=== PATIENT | female | born 1995 | race American Indian/Alaskan Native ===

== ENCOUNTER 2016-09-14 14:22 | Emergency (ER) | payer BC ==
[2016-09-14 14:31] VITALS: O2SAT 98
--- NOTE | 2016-09-14 15:16 | C.PDOC ---
History Of Present Illness 21 yr old female presents to the ER stating for the past 2 weeks she has been experiencing intermittent, non productive cough and nasal congestion. Reports the cough is more sever at night time and is associated with post-tussive emesis. Patient state she has been seen by her PMD who prescribed her Bromfed and had no relief. Patient denies recent travel, fever, chest pain, SOB, abdominal pain, diarrhea or rash. Time Seen by Provider: 09/14/16 14:37 Chief Complaint (Nursing): Cough, Cold, Congestion History Per: Patient History/Exam Limitations: no limitations Onset/Duration Of Symptoms: Intermittent Episodes (2 weeks) Past Medical History Reviewed: Historical Data, Nursing Documentation, Vital Signs Vital Signs: Last Vital Signs Temp 98.2 F 09/14/16 15:23 Pulse 72 09/14/16 15:23 Resp 20 09/14/16 15:23 BP 111/67 09/14/16 15:23 Pulse Ox 98 09/14/16 16:58 Family History: States: No Known Family Hx - Social History Hx Tobacco Use: No Hx Alcohol Use: No Hx Substance Use: No Review Of Systems Except As Marked, All Systems Reviewed And Found Negative. Constitutional: Negative for: Fever ENT: Positive for: Nose Congestion Cardiovascular: Negative for: Chest Pain Respiratory: Positive for: Cough (Non productive ). Negative for: Shortness of Breath Gastrointestinal: Positive for: Vomiting (post-tussive emesis). Negative for: Abdominal Pain, Diarrhea Skin: Negative for: Rash Physical Exam - Physical Exam Appears: Non-toxic, No Acute Distress Skin: Warm, Dry, No Rash Head: Atraumatic, Normacephalic Eye(s): bilateral: Normal Inspection Oral Mucosa: Moist Throat: Normal, No Erythema, No Exudate, No Drooling Neck: Normal, Normal ROM, Supple Chest: Symmetrical, No Tenderness Cardiovascular: Rhythm Regular, No Murmur Respiratory: Normal Breath Sounds, No Rales, No Rhonchi, No Stridor, No Wheezing Gastrointestinal/Abdominal: Normal Exam, Soft, No Tenderness, No Guarding, No Rebound Extremity: Normal ROM, No Swelling Neurological/Psych: Oriented x3, Normal Speech, Normal Motor Gait: Steady ED Course And Treatment O2 Sat by Pulse Oximetry: 98 (RA ) Pulse Ox Interpretation: Normal - Radiology CXR: Viewed By Me, Read By Radiologist CXR Interpretation: Yes: No Acute Disease Medical Decision Making Medical Decision Making: PLAN: * CXR * Claritin PO * Prednisone PO On re-exam, the patient reports improvement of symptoms. Lungs are CTA, heart is RRR, abdomen is soft, non-tender and patient is tolerating PO well. Ambulatory in the ED with steady gait. Follow up with the medical doctor within 1-2 days, Return if worsened. Disposition - Disposition Referrals: [facility] [Outside] Disposition: HOME/ ROUTINE Disposition Time: 15:11 Condition: GOOD Additional Instructions: Follow up with the medical doctor within 1-2 days, Return if worsened. Prescriptions: Loratadine [Claritin] 10 mg PO DAILY #10 tab predniSONE [Prednisone] 20 mg PO BID #10 tab Promethazine/Codeine [Phenergan/Codeine Oral Syrup] 5 ml PO Q8 PRN #50 ml PRN Reason: Cough Instructions: Acute Bronchitis (ED) Forms: [employer] (Arabic) - Clinical Impression Clinical Impression: Bronchitis - PA / GARDENER FLORIST / Resident Statement MD/DO has reviewed & agrees with the documentation as recorded. - Scribe Statement The provider has reviewed the documentation as recorded by the Scribe Pau Vang All medical record entries made by the Anivalibe were at my direction and personally dictated by me. I have reviewed the chart and agree that the record accurately reflects my personal performance of the history, physical exam, medical decision making, and the department course for this patient. I have also personally directed, reviewed, and agree with the discharge instructions and disposition.
--- NOTE | 2016-09-14 15:28 | RAD ---
HISTORY: cough COMPARISON: No prior. TECHNIQUE: Chest PA and lateral FINDINGS: LUNGS: No active pulmonary disease. PLEURA: No significant pleural effusion identified. No pneumothorax apparent. CARDIOVASCULAR: Normal. OSSEOUS STRUCTURES: No significant abnormalities. VISUALIZED UPPER ABDOMEN: Normal. OTHER FINDINGS: None. IMPRESSION: No active disease.
[2016-09-14 15:29] VITALS: BP 111/67; PULSE 72; RESP 20; TEMP 98.2
== END 2016-09-14 15:24 | disposition home or self-care (01) ==
LOC: C.ER 14:22
DX: J40 Bronchitis, not specified as acute or chronic (principal)

== ENCOUNTER 2017-11-19 23:23 | Inpatient (IN) | payer BC ==
[2017-11-19 23:42] VITALS: BMI 27.0
[2017-11-20 00:35] LABS: BASO # 0.1 K/uL (0.0-0.2); BASO % 0.5 % (0.0-2.0); EOS % 0.2 % (0.0-4.0); HEMOGLOBIN 12.1 g/dL (11.0-16.0); LYMPH # 1.5 K/uL (1.0-4.3); LYMPH % 9.8 % (20.0-40.0); MEAN CELL VOLUME 80.8 fL (81.0-99.0); MEAN CORPUSCULAR HEMOGLOBIN 27.4 pg (27.0-31.0); MEAN CORPUSCULAR HGB CONC 33.9 g/dL (33.0-37.0); MEAN PLATELET VOLUME 11.2 fL (7.2-11.7); MONO # 0.9 K/uL (0.0-0.8); MONO % 6.3 % (0.0-10.0); NEUT # 12.3 K/uL (1.8-7.0); NEUT % 83.2 % (50.0-75.0); NRBC % 0.1 % (0.0-2.0); PLATELET COUNT 182 K/uL (130-400); RBC 4.44 Mil/uL (3.80-5.20); RED CELL DISTRIBUTION WIDTH 14.4 % (11.5-14.5); WHITE BLOOD COUNT 14.8 K/uL (4.8-10.8)
[2017-11-20] MEDS ORDERED: Lidocaine 2% MPF (5 ml) Inj ONE (01:40)
[2017-11-20 01:56] LABS: LYMPHOCYTE 9 % (20-40); MONOCYTE 5 % (0-10); NEUTROPHIL 86 % (50-75); TOTAL CELLS COUNTED 100
[2017-11-20 01:57] LABS: PLATELET ESTIMATE NORMAL (NORMAL)
[2017-11-20 04:12] LABS: ALB/GLOB RATIO 1.1 (1.0-2.1); ALBUMIN 3.4 g/dL (3.5-5.0); ALT/SGPT 17 U/L (9-52); AST/SGOT 30 U/L (14-36); BLOOD UREA NITROGEN 7 mg/dL (7-17); CALCIUM 9.7 mg/dl (8.6-10.4); GFR NON-AFRICAN AMERICAN > 60
--- NOTE | 2017-11-20 14:38 | HP ---
HISTORY OF PRESENT ILLNESS: The patient is a 22-year-old female, 1, para 0-0-0-0, with due date of 11/20/2017 at 40 weeks by dates, has been complaining of contraction since 11:00 a.m. She denies any leakage of fluid. She denies any vaginal bleeding. The patient's course has been essentially unremarkable. PAST MEDICAL HISTORY: Medical history is unremarkable. ALLERGIES: NONE. SOCIAL HISTORY: She does not smoke or drink. CURRENT MEDICATIONS: Currently, she is not taking any calcium or above medications. PHYSICAL EXAMINATION: VITAL SIGNS: Her blood pressure is 110/70, pulse is 72, respiratory rate is 20, temperature is 98.8. HEAD, EAR, NOSE, AND THROAT: Within normal. CHEST: Clear. CARDIAC: Reveals normal heart sounds without any murmurs. LUNGS: Clear. BREASTS: Revealed no masses. ABDOMEN: Symphyseal fundal height is 38 cm, longitudinal lie vertex. heart tones are normal. PELVIC: She has a normal vulva. Bartholin, urethral, and [place]'s glands are within normal. Cervix is 10 cm, +1 station. membrane is intact. The patient's rupture of membrane was done. The patient has light meconium. ADMITTING DIAGNOSIS: Intrauterine at 40 weeks, in active labor. Category 1 tracing. PLAN: To allow the patient to push prior to being scheduled for the surgical procedure. The patient underwent an informed consent, discussion, and education session with me in the hospital lasting approximately an hour during which time I explained to her in understandable terms the following. The nature and extent of the disease process, the nature and extent of the contemplated operation. I also explained to her the risks and potential complications of the operative procedures to include, but not limited to infection, hemorrhage, deep vein thrombosis, atelectasis, pneumonia, pulmonary embolism, damage to the bladder, damage to the ureter, renal insufficiency, renal failure, wound infection, wound dehiscence, incisional hernia, keloid formation, damage to large and small intestines, damage to the inferior vena cava and aorta requiring extensive repair, anesthesia complications, electrolyte imbalance, possibility of , fluid overload, cerebral edema, embolism, and other complications that were discussed but are not listed above. I also discussed with the patient the anticipated benefits and results of the surgery including a conservative estimate of the successful outcome. I discussed with the patient what the operation would not accomplish. I informed the patient of the risk of shoulder dystocia, persistent brachial plexus injury. I discussed with the patient alternative methods of therapy including those I recommended and those I did not recommend, invasive and noninvasive. The patient was given the opportunity to store her own blood for using in autologous blood transfusion prenatally and she had declined. The patient was also given the option of inpatient choice or elective section. She declined. Sudheer Liang MD MTDRachel
[2017-11-21 08:18] LABS: BASO # 0.1 K/uL (0.0-0.2); BASO % 0.6 % (0.0-2.0); EOS # 0.2 K/uL (0.0-0.7); EOS % 1.3 % (0.0-4.0); LYMPH # 3.2 K/uL (1.0-4.3); LYMPH % 21.8 % (20.0-40.0); MEAN CELL VOLUME 81.6 fL (81.0-99.0); MEAN CORPUSCULAR HEMOGLOBIN 26.8 pg (27.0-31.0); MEAN CORPUSCULAR HGB CONC 32.8 g/dL (33.0-37.0); MEAN PLATELET VOLUME 10.3 fL (7.2-11.7); MONO # 1.4 K/uL (0.0-0.8); MONO % 9.2 % (0.0-10.0); NEUT % 67.1 % (50.0-75.0); RBC 3.6 Mil/uL (3.80-5.20); RED CELL DISTRIBUTION WIDTH 14.6 % (11.5-14.5); WHITE BLOOD COUNT 14.8 K/uL (4.8-10.8)
[2017-11-21 08:19] LABS: HEMOGLOBIN 9.6 g/dL (11.0-16.0)
[2017-11-21] MEDS: Oxycodone/Acetaminophen 5/325 mg Tab PO PRN ×2 (12:07→20:29)
--- NOTE | 2017-11-22 10:23 | OBPPN ---
Datetime: 11/22/2017 10:18 PP Pain Prov: Within normal limits PP Nausea Prov: Denies PP Flatus Prov: Yes PP BM Prov: Yes PP Breasts Prov: Normal PP Heart Prov: Not Done PP Abdomen/Uterus Prov: Normal PP Lochia Prov: Normal PP Vulva/Perineum Prov: Not Done PP CVA Tenderness Prov: Normal PP Extremities Prov: Normal PP Progress Prov: Normal PP Impression Prov: Normal progression PP Plan Prov: Continue present management; Discharge PP Progress Note Prov: PPD #2 Pt doing well. Pumping. Lochia moderate. ABD: Soft, NT, Uterus below umbilicus Extr: No calf tenderness A/P : S/P Doing well DC instructions discused Fe/Vit C Motrin for pain F/U in with [facility]ER in 6 wks or as needed. IP PP Procedures: None
--- NOTE | 2017-11-22 10:26 | OBDCSUM ---
Datetime: 11/22/2017 10:22 Discharged to, Provider: Home Follow up at, Provider: PMD Disch Instr Activity: Normal activity; May be up to bathroom; May be up for meals Disch Instr Diet: Regular Discharge Instructions, Provider: Routine instructions given Discharge Diagnosis, Provider: Term Delivered Follow up in weeks, Provider: 6 wks Disch Activity Restrictions: No exercising; No lifting; No sexual activity; Nothing in vagina - Inte rcourse, tampons, douche Discharge Comment, Provider: Instructions as discussed Contraception after Delivery: Undecided
[2017-11-22 21:34] VITALS: BP 108/62; PULSE 85; RESP 18; TEMP 98; O2SAT 99
--- NOTE | 2017-11-24 09:24 | OBADHP ---
Datetime: 11/19/2017 23:26 Admit Comment, IP Provider: with IUP at 39+6 weeks +FM + CTX - LOF - VB primigravida reports painful contractions and vaginal pressure patient reports she was taking an antibiotic in -- unknown name and indication [employer] Hx: LMP unknown, denies STIs, reports normal paps Med Hx: denies Family Hx: denies Social: denies smoking drinking and drug use NKDA patient reports taking vitamins assessment: primigravida in labor plan: admit under private physician, Dr. Mittal Epidural for pain control expectant management Dr. Mittal notified Pelvic Type - PN: Adequate Extremities - PN: Not Done Abdomen - PN: Normal Back - PN: Not Done Breast - PN: Not Done Lungs - PN: Not Done Heart - PN: Not Done Thyroid - PN: Not Done Neurologic - PN: Not Done HEENT - PN: Not Done General - PN: Normal FHR - Baseline A Provider: 120s Gestation - Est Wks by US: 39+6 Vital Signs Provider: Reviewed; Within Normal Limits IP Chief Complaint: Uterine contractions NICHD Variability Prov Fetus A: Moderate 6-25bpm NICHD Accel Fetus A IP Provider: [id number] FHR Category Provider Fetus A: Category I NICHD Decel Fetus A IP Provider: None Dilatation, Provider: 4 Effacement, Provider: 80 Station, Provider: 0 Genitourinary Exam: Normal DTRs - PN: Not Done EGA AdmitDate IP: 40.0 IP Adm Impression: Term, intrauterine IP Admit Plan: Admit to unit; Initiate labor protocol
== END 2017-11-22 14:30 | disposition home or self-care (01) | DRG 807 ==
LOC: C.EROB 23:23 → C.4D 23:43 → C.4M 11-20 04:15
PROVIDERS: ADMIT Obstetrics & Gynecology Reproductive Endocrinology; ATTEND Obstetrics & Gynecology Reproductive Endocrinology
PROC: 10E0XZZ Delivery of Products of Conception, External Approach (ICD-10-PCS; principal; 2017-11-20)
DX: O77.0 Labor and delivery complicated by meconium in amniotic fluid (principal); Z37.0 Single live birth; Z3A.40 40 weeks gestation of pregnancy